=== PATIENT | female | born 1960 | race Caucasian/White ===

== ENCOUNTER 2024-02-03 19:09 | Emergency (ER) | payer BC, SELFPAY ==
[2024-02-03 19:16] VITALS: BP 135/90
[2024-02-03 19:34] LABS: % Basophils 0.4 % (0-2); % Eosinophils 5.3 % (0-6); % Immature Granulocytes 0.3 % (0-0.5); % Lymphocytes 30.6 % (20.5-51.1); % Monocytes 11.5 % (1.7-9.3); % Neutrophils 51.9 % (42.2-75.2); Absolute Basophils 0.1 10^3/uL (0-0.2); Absolute Eosinophils 0.6 10^3/uL (0-0.7); Absolute Lymphocytes 3.4 10^3/uL (1.2-3.4); Absolute Monocytes 1.3 10^3/uL (0.1-0.6); Absolute Neutrophils 5.8 10^3/uL (1.4-6.5); Hematocrit 35.5 % (37.0-47.0); Mean Corp Hgb Conc. 33.8 g/dL (33.0-37.0); Mean Corpuscular Hgb 28.1 pg (27.0-31.0); Mean Corpuscular Volume 83.1 fL (81.0-99.0); Mean Platelet Volume 9.6 fL (7.4-10.4); Nucleated Red Blood Cells % 0 %; Platelet Count 249 10^3/uL (130-400); Red Blood Cell Count 4.27 10^6/uL (4.20-5.40); Red Cell Dist. Width 14.2 % (11.5-14.5); White Blood Cell Count 11.2 10^3/uL (4.8-10.8)
[2024-02-03 19:55] LABS: ALT (SGPT) 13 U/L (0-35); AST (SGOT) 18 U/L (14-36); Albumin 4.1 g/dl (3.5-5.0); Alkaline Phosphatase 86 U/L (38-126); Blood Urea Nitrogen 13 mg/dl (7-17); Calcium 9.3 mg/dl (8.4-10.2); Carbon Dioxide 22 mmol/L (22-30); Chloride 112 mmol/L (98-107); Glucose 92 mg/dl (70-99); Potassium 3.9 mmol/L (3.5-5.1); Sodium 143 mmol/L (135-145); Total Bilirubin 0.3 mg/dl (0.2-1.3); Total Protein 6.8 g/dl (6.3-8.2); eGFR > 60.00
--- NOTE | 2024-02-03 21:38 | ED.GENMED ---
History of Present Illness
General
Chief Complaint: DVT/Possible Blood Clot
Time Seen by Provider: 02/03/24 21:38
Travel History
Have you had any contact with someone who has COVID-19?: No
Do you have any symptoms of coronavirus? Fever > 100 degrees, chills, cough, shortness of breath, sore throat, loss of taste or smell, muscle aches, or headache?: No
History of Present Illness
History of Present Illness:
HPI: Patient presents due to concerns of swelling of the left leg. She is on Eliquis. She thought she had a blood clot like she had in the past so she increased the dose of Eliquis. She has been trying compression stocking and try to keep her
legs elevated last night. She had been walking around [place] and was very hot outside however she states that she does frequently walk around. She also said that she was concerned because she had some vague chest discomfort earlier in the day
as well.
EXAM:
GENERAL: Well appearing in no distress
HEENT: Moist oral mucosa
CARDIOVASCULAR: No murmurs, normal heart rate, regular rhythm, No chest wall tenderness
PULMONARY: No respiratory distress, breath sounds are clear and equal
ABDOMEN: Soft with no peritoneal signs, no tenderness
NEUROLOGIC: Excellent strength all extremities, no coordination deficits
PSYCHIATRIC: Appropriate mental status, normal insight and judgement
EXTREMITIES: Nontender, left lower extremity 1+ edema, right lower extremity trace edema, moves all extremities equally
SKIN: No rash, no lesions
TIME OF INITIAL ENCOUNTER: 9:50 PM
NUMBER AND COMPLEXITY OF PROBLEMS ADDRESSED AT THE ENCOUNTER
� Chronic conditions affecting care: DVT, hyperlipidemia, prediabetes
� Acute Exacerbation and/or Progression of Chronic Illness: This is an acute problem
� Differential Diagnosis includes: DVT, heart failure, ACS, lymphedema, venous insufficiency
AMOUNT AND/OR COMPLEXITY OF DATA TO BE REVIEWED AND ANALYZED
� I performed an independent evaluation of and my interpretation is:
EKG: Sinus 58, no acute ST abnormality
CT:
X-rays:
Laboratory Studies: Mild leukocytosis with white count of 11.2, chemistries unremarkable, troponin and BNP unremarkable
Other: Ultrasound imaging of the left lower extremity shows no evidence for DVT
� Review of other/old records: No old records available for review
� Clinical information was obtained by an independent historian: None needed
� Prescriptions/Medications Considered but not given:
� Further testing considered but not performed:
RISK OF COMPLICATIONS AND/OR MORBIDITY OR MORTALITY OF PATIENT MANAGEMENT
� Social determinants of health affecting care: Lives at home, just recently got back from vacation in [place] where she was walking around a lot
� Discussion with other providers:
� Escalation of care including admission/observation vs risk of discharge considered: Ultrasound imaging negative, basic labs unremarkable however she also reports some chest pain. Checked troponin and BNP�both are unremarkable.
Gave a one-time dose of oral Lasix. Strongly encourage patient to keep the legs elevated is much as possible. The patient did leave before discharge paperwork and reassessment was performed.
Phy Exam
Physical Exam
Physical Exam:
See HPI
Course
Orders/Labs/Results
Orders:
Orders
02/03/24 19:23
Periph Venous Lwr Ext Left US [US Periph Venous LOWER Ext LT] Urgent
Comment:
Reason For Exam: PAIN/SWELLING, HISTORY OF; RECENT TRAVEL
02/03/24 19:29
CMP [Comprehensive Metabolic Panel] Urgent
Complete Blood Count/With Diff Urgent
02/03/24 21:55
Electrocardiogram (*1) Urgent
Reason for Study: Chest Pain
EKG- Treatment ONCE
Furosemide [Lasix] 20 mg PO NOW STA
02/03/24 22:13
NT-proBNP Urgent
Troponin I Urgent
Abnormal Lab Results
02/03/24
19:29
WBC 11.2 H 10^3/uL
(4.8-10.8)
Hct 35.5 L %
(37.0-47.0)
Absolute Monos (auto) 1.3 H 10^3/uL
(0.1-0.6)
Monocytes % 11.5 H %
(1.7-9.3)
Chloride 112 H mmol/L
(98-107)
02/03/24 19:29
02/03/24 19:29
Vital Signs
Initial and Last Documented VS:
Initial Vital Signs
Temp Pulse Resp BP Pulse Ox
98.1 F 74 18 135/90 98
02/03/24 19:16 02/03/24 19:16 02/03/24 19:16 02/03/24 19:16 02/03/24 19:16
Last Documented Vital Signs
Temp Pulse Resp BP Pulse Ox
98.1 F 62 18 138/77 99
02/03/24 19:16 02/03/24 23:23 02/03/24 19:16 02/03/24 23:23 02/03/24 22:29
*Critical Care Note
Total Time (30-74mins, 75-104mins- exclusive of procedures): Not Applicable
ED Attending Note
-
Portions of this chart may have been created with voice recognition software.� Occasional wrong word or��sound alike� substitutions may have occurred due to the inherent limitations of voice recognition software.
Discharge Plan
Departure
Patient Disposition: Home (Routine Discharge)
Date of Disposition: 02/03/24
Time of Disposition: 23:18
Patient with high blood pressure during this ER visit?: Yes
Discharge Problem:
Swelling
Instructions: Swelling
Referrals:
NONE,* [Family Provider] -
Activity Restrictions/Additional Instructions:
Ultrasound shows no evidence of blood clot in your leg. Basic blood work including cardiac blood work as well as test for heart failure are normal. Return here if worse.
Interventions
Interventions:
*Risk Screen - Suicide Last Done: 02/03/24 19:16
*General Assessment Last Done: 02/03/24 23:23
*Neglect/Abuse Screening Last Done: 02/03/24 19:16
*Nursing Disposition Last Done: 02/03/24 23:23
ED- Cardiac Assessment Last Done: 02/03/24 22:29
ED- Pulmonary Assessment Last Done: 02/03/24 22:29
ED-Skin Assessment Last Done: 02/03/24 22:29
Discharge Date and Time
Discharge Date/Time: 02/03/24 23:25
Print Language: ROMANIAN
[2024-02-03] MEDS: LASIX 20 MG PO (22:19)
[2024-02-03 22:47] LABS: NT-proBNP 312 pg/ml; Troponin I < 0.012 ng/ml
[2024-02-03 22:50] VITALS: BP 138/77
[2024-02-03 23:23] VITALS: BP 138/77
== END 2024-02-03 23:25 | disposition home or self-care (01) ==
LOC: EMR 19:09
PROVIDERS: Student in an Organized Health Care Education/Training Program; EMERGENCY PHYSICIAN Emergency Medicine
DX: R22.42 Localized swelling, mass and lump, left lower limb (principal); R07.89 Other chest pain; Z79.01 Long term (current) use of anticoagulants
CPT/HCPCS: 99285; 80053; 83880; 84484; 85025; 93005; 93971